=== PATIENT | female | born 1980 | race Two or more races ===

== ENCOUNTER 2021-08-16 15:49 | Emergency (ER) | payer SELFPAY ==
[~2021-08-16] VITALS: Ht 157.5 cm; Wt 65.3 kg
[2021-08-16] MEDS ORDERED: CYCLOBENZAPRINE 10 MG TABLET. PO ONE (17:30)
[2021-08-16] MEDS ORDERED: HYDROcodone/APAP 5/325MG 1 TAB TABLET PO ONE (17:30)
[2021-08-16 17:31] LABS: BILIRUBIN,URINE NEGATIVE (NEG); CLARITY,URINE CLEAR; COLOR,URINE YELLOW; NITRITE,URINE NEGATIVE (NEG); PH,URINE 5.5 (<5.0-8.0); PROTEIN,URINE NEGATIVE (NEG-TRACE); UROBILINOGEN,URINE 0.2 mg/dL (0.2 mg/dL)
[2021-08-16 17:37] LABS: BACTERIA,URINE MODERATE /HPF (0-FEW)
[2021-08-16 17:40] LABS: AMPHETAMINE/METHAMPHETAMINE NEG (NEG); BARBITURATES NEG (NEG); BENZODIAZEPINES NEG (NEG); CANNABINOIDS NEG (NEG); COCAINE NEG (NEG); METHADONE NEG (NEG); OPIATES NEG (NEG); PHENCYCLIDINE NEG (NEG)
--- NOTE | 2021-08-16 17:41 | PHYS DOC ---
Past Medical History Past Surgical History: Tubal ligation General Adult EDM: Chief Complaint: ABDOMINAL PAIN HPI: HPI: Patient is a 41 year old female presented to the ED today complaining of 8 out of 10 sharp intermittent mid to low back pain, symptoms have been going on for 3 weeks. Patient denies any trauma. Denies any urgency frequency or dysuria. Denies any hematuria. Denies any pain radiating to bilateral lower extremities, denies any loss of bowel/bladder function. Denies anything specifically exacerbating or relieving her pain. She states she was seen at a local clinic and they told her her pain is muscle skeletal. Review of Systems: Review of Systems: Constitutional: Denies fever or chills. [] Eyes: Denies change in visual acuity. [] HENT: Denies nasal congestion or sore throat. [] Respiratory: Denies cough or shortness of breath. [] Cardiovascular: Denies chest pain or edema. [] GI: Denies abdominal pain, nausea, vomiting, bloody stools or diarrhea. [] : Denies dysuria. [] Musculoskeletal: Reports mid and low back pain Integument: Denies rash. [] Neurologic: Denies headache, focal weakness or sensory changes. [] Psychiatric: Denies depression or anxiety. [] Heart Score: C/O Chest Pain: N/A Risk Factors: Risk Factors: DM, Current or recent (<one month) smoker, HTN, HLP, family history of CAD, obesity. Risk Scores: Score 0 - 3: 2.5% MACE over next 6 weeks - Discharge Home Score 4 - 6: 20.3% MACE over next 6 weeks - Admit for Clinical Observation Score 7 - 10: 72.7% MACE over next 6 weeks - Early Invasive Strategies Current Medications: Current Medications Medications (Trade) Dose Ordered Sig/Eduardo Start Time Stop Time Status Last Admin Dose Admin Acetaminophen/ Hydrocodone Bitart (Lortab 5/325) 1 tab 1X ONCE 08/16/21 17:30 08/16/21 17:31 DC Cyclobenzaprine HCl (Flexeril) 10 mg 1X ONCE 08/16/21 17:30 08/16/21 17:31 DC Allergies: Allergies: Allergies Coded Allergies Type Severity Reaction Last Updated Verified No Known Drug Allergies 08/16/21 No Physical Exam: PE: Constitutional: Well developed, well nourished, no acute distress, non-toxic appearance. [] HENT: Normocephalic, atraumatic, bilateral external ears normal, oropharynx moist, no oral exudates, nose normal. [] Eyes: PERRLA, EOMI, conjunctiva normal, no discharge. [] Neck: Normal range of motion, no tenderness, supple, no stridor. [] Cardiovascular:Heart rate regular rhythm, no murmur [] Lungs & Thorax: Bilateral breath sounds clear to auscultation [] Abdomen: Bowel sounds normal, soft, no tenderness, no masses, no pulsatile masses. [] Skin: Warm, dry, no erythema, no rash. [] Back: No tenderness, no CVA tenderness. [] Extremities: Diffuse paraspinal muscle tenderness to thoracic and lumbar spine, no midline thoracic or lumbar spine tenderness, no cyanosis, no clubbing, ROM intact, no edema. [] Neurologic: Alert and oriented X 3, normal motor function, normal sensory function, no focal deficits noted. [] Psychologic: Affect normal, judgement normal, mood normal. [] Current Patient Data: Labs: Laboratory Tests Test 08/16/21 17:15 Urine Collection Type Unknown Urine Color Yellow Urine Clarity Clear Urine pH 5.5 (<5.0-8.0) Urine Specific [place] <=1.005 (1.000-1.030) Urine Protein Negative mg/dL (NEG-TRACE) Urine Glucose (UA) Negative mg/dL (NEG) Urine Ketones (Stick) Negative mg/dL (NEG) Urine Blood Moderate (NEG) Urine Nitrite Negative (NEG) Urine Bilirubin Negative (NEG) Urine Urobilinogen Dipstick 0.2 mg/dL (0.2 mg/dL) Urine Leukocyte Esterase Trace (NEG) Urine RBC 1-2 /HPF (0-2) Urine WBC 5-10 /HPF (0-4) Urine Squamous Epithelial Cells Many /LPF Urine Bacteria Moderate /HPF (0-FEW) Urine Mucus Slight /LPF Vital Signs: Vital Signs Date Time Temp Pulse Resp B/P (MAP) Pulse Ox O2 Delivery O2 Flow Rate FiO2 08/16/21 17:20 97.8 60 18 118/58 (78) 100 Room Air 97.8 EKG: EKG: [] Radiology/Procedures: Radiology/Procedures: []PROCEDURE: CT ABDOMEN PELVIS WO CONTRAST EXAM: CT Abdomen and Pelvis without IV contrast CLINICAL HISTORY: flank pain COMPARISON: none TECHNIQUE: Helical CT of the abdomen and pelvis without intravenous contrast. Axial, coronal and sagittal reformatted images were generated. PQRS compliance statement - One or more of the following individualized dose red uction techniques were utilized for this study: 1. Automated exposure control 2. Adjustment of the mA and/or kV according to patient size 3. Use of iterative reconstruction technique FINDINGS: Lack of intravenous contrast limits evaluation of solid organs, vasculature, and lymph nodes. Lower chest: A 1.9 x 0.8 cm tubular right lower lobe lung nodule is seen. This may be within a distal airway. Abdomen and Pelvis: Accounting for postcholecystectomy change, no biliary ductal dilatation. The liver, spleen, adrenal glands, pancreas are unremarkable. Symmetric nephrograms. No focal renal lesion. No hydronephrosis. Bladder is unremarkable. Appendix is normal. Moderate colonic stool content is seen. No small or large bowel dilatation. No bowel obstruction. Diffuse thickening of the rectum. No abdominal or pelvic lymphadenopathy. No abdominal or pelvic ascites. Aorta is normal in caliber. Bones: No aggressive osseous lesion is seen. IMPRESSION: 1. No renal tract calculus. 2. Moderate colonic stool content. No bowel obstruction. 3. Tubular opacity right lower lobe possibly debris-filled airway. Recommend close attention on follow-up CT in 6 months. 4. Diffuse thickening of the rectum, possibly physiologic or infectious/inflammatory in nature. Malignancy is not excluded. Electronically signed by: Levar Perdue MD (08/16/2021 6:28 PM) [facility] DICTATED and SIGNED BY: LEVAR PERDUE MD DATE: 08/16/21 [id number] 0 Course & Med Decision Making: Course & Med Decision Making Pertinent Labs and Imaging studies reviewed. (See chart for details) This is a 41-year-old female patient presenting to the ED today with mid and low back pain, symptoms began 3 weeks ago. Negative urine hCG, UA noted for moderate amount of bacteria, trace amount of leukocytes, no nitrites, WBCs 5-10, considering her flank pain for 1000 and t reat for this patient. CT of the abdomen and pelvis negative for kidney stones, noted for constipation with moderate amount of stool. Tubular opacity right lower lobe possibly debris-filled airway. Recommend close attention on follow-up CT in 6 months.Di ffuse thickening of the rectum, possibly physiologic or infectious/inflammatory in nature. Malignancy is not excluded. Spoke to patient about CT results. Was discharged on Augmentin. Instructed to follow-up with the PCP and they can schedule her for colonoscopy as well as a follow-up CT of the chest in 6 months. Zach Disclaimer: Zach Disclaimer: This electronic medical record was generated, in whole or in part, using a voice recognition dictation system. Departure Departure Impression: Primary Impression: Pain, flank, bilateral Additional Impressions: UTI (urinary tract infection) Qualified Codes: N39.0 - Urinary tract infection, site not specified Acute constipation Disposition: HOME / SELF CARE / HOMELESS Condition: STABLE Referrals: ROSANNE SOARES MD (PCP) follow up with your doctor next week Patient Instructions: Constipation, Adult, Flank Pain, [id number], Urinary Tract Infection Additional Instructions: You were evaluated in the emergency room, you have urinary tract infection, you also noted to have moderate amount of stool in your colon he is constipated. Please increase your dietary fiber intake as well as water intake. Take [id number] constipation medicines take MiraLAX every day and magnesium citrate whenever you are constipated. Your CT was concerning for debris right lower lungs. Please follow-up with your primary care doctor as soon as possible and they will set you up for a follow- up CT as an outpatient in the next 6 months. You were also noted to have thickening of the rectum. This could be infectious or just how your rectal area is made up. Please follow-up with your primary care doctor and will set up with GI for colonoscopy. You can follow-up with the provided licensing registration examiner. Scripts Naproxen (NAPROXEN) 375 Mg Tablet 1 TAB PO BID for pain, #14 TAB 0 Refills with food Prov: RAMON HERBERT COST REPORT CLERK 08/16/21 Cyclobenzaprine Hcl (CYCLOBENZAPRINE HCL) 10 Mg Tablet 1 TAB PO TID, #30 TAB Prov: RAMON HERBERT COST REPORT CLERK 08/16/21 Polyethylene Glycol 3350 (MIRALAX) 119 Gm Powder 17 GM PO DAILY for constipation, #255 GM 0 Refills dissolve in water Prov: RAMON HERBERT COST REPORT CLERK 08/16/21 Amoxicillin/Potassium Clav (AUGMENTIN 875-125 TABLET) 1 Each Tablet 1 TAB PO BID for 7 Days, #14 TAB 0 Refills Prov: MUTUNGA,RAMON M COST REPORT CLERK 08/16/21 RAMON HERBERT APRN Aug 16, 2021 17:41
[2021-08-16 18:03] VITALS: BP 132/82
[2021-08-16 18:14] LABS: U PREG PATIENT NEGATIVE (NEG)
--- NOTE | 2021-08-16 18:31 | RAD ---
EXAM: CT Abdomen and Pelvis without IV contrast CLINICAL HISTORY: flank pain COMPARISON: none TECHNIQUE: Helical CT of the abdomen and pelvis without intravenous contrast. Axial, coronal and sagi ttal reformatted images were generated. PQRS compliance statement - One or more of the following individualized dose reduction techniques wer e utilized for this study: 1. Automated exposure control 2. Adjustment of the mA and/or kV according to patient size 3. Use of iterative reconstruction technique FINDINGS: Lack of intravenous contrast limits evaluation of solid organs, vasculature, and lymph nodes. Lower chest: A 1.9 x 0.8 cm tubular right lower lobe lung nodule is seen. This may be within a distal airway. Abdomen and Pelvis: Accounting for postcholecystectomy change, no biliary ductal dilatation. The liver, spleen, adrenal g lands, pancreas are unremarkable. Symmetric nephrograms. No focal renal lesion. No hydronephrosis. Bl adder is unremarkable. Appendix is normal. Moderate colonic stool content is seen. No small or large bowel dilatation. No bowel obstruction. Diffuse thickening of the rectum. No abdominal or pelvic lymphadenopathy. No abdominal or pelvic ascites. Aorta is normal in caliber. Bones: No aggressive osseous lesion is seen. IMPRESSION: 1. No renal tract calculus. 2. Moderate colonic stool content. No bowel obstruction. 3. Tubular opacity right lower lobe possibly debris-filled airway. Recommend close attention on foll ow-up CT in 6 months. 4. Diffuse thickening of the rectum, possibly physiologic or infectious/inflammatory in nature. Aubree gnancy is not excluded. Electronically signed by: Levar Perdue MD (08/16/2021 6:28 PM) [facility]
[2021-08-16] MEDS ORDERED: POLY119P4 PO (18:44)
[2021-08-16] MEDS ORDERED: CYCL10TA19 PO (18:44)
[2021-08-16] MEDS ORDERED: AMOX1TAB61 PO (18:44)
[2021-08-16] MEDS ORDERED: NAPR-695 PO (18:44)
[2021-08-16] MEDS ORDERED: BISACODYL 5 MG TABLET.DR. PO STA (18:45)
[2021-08-16] MEDS ORDERED: MAGNESIUM CITRATE 296 ML SOLUTION. PO ONE (18:45)
== END 2021-08-16 19:03 | disposition home or self-care (01) ==
LOC: ER 15:49
DX: N39.0 Urinary tract infection, site not specified (principal); K59.00 Constipation, unspecified; Z98.51 Tubal ligation status
CPT/HCPCS: 74176; 80307; 81001; 81025; 87086; 99284-25